=== PATIENT | male | born 1995 | race Asian ===

== ENCOUNTER 2021-12-01 23:48 | Emergency (ER) | payer SELFPAY ==
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
[2021-12-02 00:12] LABS: Urine Blood Negative (Negative); Urine Glucose Negative (Negative); Urine Protein Trace (Negative); Urine Specific Gravity >=1.030 (1.005-1.030); Urine pH 6.5 (5.0-7.0)
--- NOTE | 2021-12-02 00:18 | ER ---
Nurse's Notes [facility] Name: Darek Grimes Age: 25 yrs Sex: Male : 1995 Arrival Date: 12/01/2021 Time: 23:50 Bed 20 Private MD: Diagnosis: Nonspecific urethritis Presentation: 12/01 23:59 Chief complaint: Patient states: "It started off with just itching and burning when I tw5 pee. I took a nap and when I woke up there was discharge.". Coronavirus screen: Vaccine status: Patient reports being unvaccinated. Ebola Screen: Patient negative for fever greater than or equal to 101.5 degrees Fahrenheit, and additional compatible Ebola Virus Disease symptoms Patient denies exposure to infectious person. Patient denies travel to an Ebola-affected area in the 21 days before illness onset. Onset: The symptoms/episode began/occurred gradually. Anaphylaxis evaluation, no signs or symptoms of anaphylaxis were noted. Initial Sepsis Screen: Does the patient meet any 2 criteria? No. Patient's initial sepsis screen is negative. Does the patient have a suspected source of infection? No. Patient's initial sepsis screen is negative. Risk Assessment: Do you want to hurt yourself or someone else? Patient reports no desire to harm self or others. Onset of symptoms was December 02, 2021. 23:59 Method Of Arrival: Ambulatory tw5 23:59 Acuity: KARINA 4 tw5 Triage Assessment: 12/02 00:00 General: Appears in no apparent distress. Behavior is calm, cooperative, appropriate tw5 for age. Pain: Denies pain. Historical: - Allergies: 00:00 NKDA; tw5 - Home Meds: 00:00 None [Active]; tw5 - PMHx: 00:00 None; tw5 - PSHx: 00:00 None; tw5 - Immunization history:: Flu vaccine is not up to date. - Social history:: Smoking status: Patient denies any tobacco usage or history of. Screenin:00 Abuse screen: Denies threats or abuse. Nutritional screening: No deficits noted. ja4 Tuberculosis screening: No symptoms or risk factors identified. Fall Risk None identified. Assessment: 00:00 General: Appears in no apparent distress. Pain: Complains of pain in pelvis. ja4 Respiratory: No deficits noted. : Reports burning with urination, since 11/30/21 discharge, from penis that is white, yellow, Patient is sexually active. Vital Signs: 12/01 23:59 BP 128 / 80; Pulse 67; Resp 18; Temp 98.6; Pulse Ox 97% ; Weight 70.31 kg; Height 5 ft. tw5 11 in. (180.34 cm); Pain 0/10; 23:59 Body Mass Index 21.62 (70.31 kg, 180.34 cm) tw5 ED Course: 23:50 Patient arrived in ED. bp1 23:54 Elaine Tomlin FNP-C [facility] snw 23:54 Klever Wang MD is Attending Physician. snw 12/02 00:00 Triage completed. tw5 00:00 Arm band placed on Patient placed in an exam room. tw5 00:00 Patient has correct armband on for positive identification. Bed in low position. Call ja4 light in reach. 00:00 No provider procedures requiring assistance completed. ja4 00:20 Victoriano Goncalves RN is Primary Nurse. ja4 Administered Medications: 00:21 CANCELLED (Inappropriate at this time; + etohh): Flagyl (metroNIDAZOLE) 1 grams PO once snw 00:41 Drug: Rocephin (cefTRIAXone) 250 mg Route: IM; Site: left gluteus; ja4 00:41 Drug: Zithromax (azithromycin) 1 grams Route: PO; ja4 Medication: 00:00 VIS not applicable for this client. ja4 Outcome: 00:17 Discharge ordered by MD. snw 01:15 Discharged to home ja4 01:15 Condition: stable 01:15 Discharge instructions given to patient, Instructed on discharge instructions, follow up and referral plans. safe sex practices, Demonstrated understanding of instructions, follow-up care. 01:16 Patient left the ED. ja4 Signatures: Elaine Tomlin FNP-C PATENT PROSECUTION ATTORNEY-Csnw Twila Lozano bp1 Elba العلي tw5 Victoriano Goncalves, ASHLIE RN ja4
--- NOTE | 2021-12-02 00:19 | EDPHYS ---
Physician Documentation [facility] Name: Darek Grimes Age: 25 yrs Sex: Male : 1995 Arrival Date: 12/01/2021 Time: 23:50 Bed 20 Private MD: ED Physician Klever Wang HPI: 12/02 00:23 This 25 yrs old Male presents to ER via Ambulatory with complaints of Pain With snw Urination, Itching. 00:23 Onset: The symptoms/episode began/occurred acutely. Associated signs and symptoms: The snw patient has no apparent associated signs or symptoms. Modifying factors: The patient symptoms are alleviated by nothing, the patient symptoms are aggravated by unprotected intercourse. The patient has experienced similar episodes in the past, a few times. The patient has not recently seen a physician. encouraged to go to [facility] clinic. Historical: - Allergies: 00:00 NKDA; tw5 - Home Meds: 00:00 None [Active]; tw5 - PMHx: 00:00 None; tw - PSHx: 00:00 None; tw5 - Immunization history:: Flu vaccine is not up to date. - Social history:: Smoking status: Patient denies any tobacco usage or history of. ROS: 00:22 Constitutional: Negative for fever, chills, and weight loss, Eyes: Negative for injury, snw pain, redness, and discharge, ENT: Negative for injury, pain, and discharge, Neck: Negative for injury, pain, and swelling, Cardiovascular: Negative for chest pain, palpitations, and edema, Respiratory: Negative for shortness of breath, cough, wheezing, and pleuritic chest pain, Abdomen/GI: Negative for abdominal pain, nausea, vomiting, diarrhea, and constipation, Back: Negative for injury and pain, MS/Extremity: Negative for injury and deformity, Skin: Negative for injury, rash, and discoloration, Neuro: Negative for headache, weakness, numbness, tingling, and seizure, Psych: Negative for depression, anxiety, suicide ideation, homicidal ideation, and hallucinations. 00:22 : Positive for urinary symptoms, burning with urination, penile discharge. Exam: 00:24 Constitutional: This is a well developed, well nourished patient who is awake, alert, snw and in no acute distress. Head/Face: Normocephalic, atraumatic. Eyes: Pupils equal round and reactive to light, extra-ocular motions intact. Lids and lashes normal. Conjunctiva and sclera are non-icteric and not injected. Cornea within normal limits. Periorbital areas with no swelling, redness, or edema. ENT: Nares patent. No nasal discharge, no septal abnormalities noted. Tympanic membranes are normal and external auditory canals are clear. Oropharynx with no redness, swelling, or masses, exudates, or evidence of obstruction, uvula midline. Mucous membranes moist. Neck: Trachea midline, no thyromegaly or masses palpated, and no cervical lymphadenopathy. Supple, full range of motion without nuchal rigidity, or vertebral point tenderness. No Meningismus. Chest/axilla: Normal chest wall appearance and motion. Nontender with no deformity. No lesions are appreciated. Cardiovascular: Regular rate and rhythm with a normal S1 and S2. No gallops, murmurs, or rubs. Normal PMI, no JVD. No pulse deficits. Respiratory: Lungs have equal breath sounds bilaterally, clear to auscultation and percussion. No rales, rhonchi or wheezes noted. No increased work of breathing, no retractions or nasal flaring. Abdomen/GI: Soft, non-tender, with normal bowel sounds. No distension or tympany. No guarding or rebound. No evidence of tenderness throughout. Back: No spinal tenderness. No costovertebral tenderness. Full range of motion. Skin: Warm, dry with normal turgor. Normal color with no rashes, no lesions, and no evidence of cellulitis. MS/ Extremity: Pulses equal, no cyanosis. Neurovascular intact. Full, normal range of motion. Neuro: Awake and alert, GCS 15, oriented to person, place, time, and situation. Cranial nerves II-XII grossly intact. Motor strength 5/5 in all extremities. Sensory grossly intact. Cerebellar exam normal. Normal gait. Vital Signs: 12/01 23:59 BP 128 / 80; Pulse 67; Resp 18; Temp 98.6; Pulse Ox 97% ; Weight 70.31 kg; Height 5 ft. tw5 11 in. (180.34 cm); Pain 0/10; 23:59 Body Mass Index 21.62 (70.31 kg, 180.34 cm) tw5 MDM: 12/02 00:07 Patient medically screened. snw 00:21 Data reviewed: vital signs, nurses notes, lab test result(s). Data interpreted: Pulse snw oximetry: on room air is 97 %. Interpretation: normal. Counseling: I had a detailed discussion with the patient and/or guardian regarding: the historical points, exam findings, and any diagnostic results supporting the discharge/admit diagnosis, lab results, the need for outpatient follow up, to return to the emergency department if symptoms worsen or persist or if there are any questions or concerns that arise at home. Special discussion: Based on the history and exam findings, there is no indication for further emergent testing or inpatient evaluation. [facility]. 12/01 23:54 Order name: Urine Culture snw 12/01 23:54 Order name: Urine Microscopic Only; Complete Time: 00:45 snw 12/02 00:13 Order name: Urine Dipstick-Ancillary; Complete Time: 00:14 EDMS 12/01 23:54 Order name: Urine Dipstick-Ancillary (obtain specimen) snw 12/01 23:54 Order name: Urine Test (obtain specimen) snw Administered Medications: 00:21 CANCELLED (Inappropriate at this time; + etohh): Flagyl (metroNIDAZOLE) 1 grams PO once snw 00:41 Drug: Rocephin (cefTRIAXone) 250 mg Route: IM; Site: left gluteus; ja4 00:41 Drug: Zithromax (azithromycin) 1 grams Route: PO; ja4 Disposition Summary: 12/02/21 00:17 Discharge Ordered Location: Home snw Condition: Stable snw Diagnosis - Nonspecific urethritis snw Followup: snw - With: Emergency Department - When: As needed - Reason: Worsening of condition Followup: snw - With: Private Physician - When: 2 - 3 days - Reason: Recheck today's complaints, Continuance of care, Re-evaluation by your physician Discharge Instructions: - Discharge Summary Sheet snw - Urethritis, Adult snw - Preventing Sexually Transmitted Infections, Adult snw Forms: - Medication Reconciliation Form snw - Thank You Letter snw - Antibiotic Education snw - Prescription Opioid Use snw Signatures: Dispatcher [employer] EDElaine Muniz FNP-C FNP-Elba Mcclelland tw5 Victoriano Goncalves RN RN ja4 Corrections: (The following items were deleted from the chart) 00:21 00:15 Flagyl (metroNIDAZOLE) 1 grams PO once ordered. snw snw
[2021-12-02] MEDS ORDERED: CEFTRIAXONE 250 MG/VIAL ONE (00:38)
[2021-12-02] MEDS ORDERED: AZITHROMYCIN 250 MG TAB ONE (00:38)
[2021-12-02 00:42] LABS: Urine Bacteria <20 /HPF (<20); Urine Mucus 2+ /HPF (None Seen); Urine RBC <5 /HPF (None Seen)
[2021-12-02 05:14] VITALS: BP 128/80; TEMP 98.6; O2SAT 97
== END 2021-12-02 01:16 | disposition home or self-care (01) ==
LOC: ER 23:48
DX: N34.1 Nonspecific urethritis (principal)
CPT/HCPCS: 81003; 81015; 87086; 87088; 96372; 99283; J0696

== ENCOUNTER 2022-11-23 12:03 | Emergency (ER) | payer BC ==
--- OUTSIDE RECORDS SUMMARY | 2022-11-23 12:06 | XMS REPORT | Continuity of Care Document ---
:1995 Author Organization [facility] t Address [address] [place] [address] Care Team Providers Name Role Phone VIRIDIANA RIZO Attending Clinician Unavailable VIC OLIVIER Attending Clinician Unavailable TAMICA Attending Clinician Unavailable DR VIRIDIANA RIZO Attending Clinician Unavailable JANNA MARINELLI PA Attending Clinician Unavailable VIRIDIANA RIZO M.D. Attending Clinician Unavailable NARAYAN AGARWAL M.D. Attending Clinician Unavailable Vic Olivier M.D. Attending Clinician Unavailable ENEDELIA MOON P.A. Attending Clinician Unavailable DOMENICA REY M.D. Attending Clinician Unavailable PARUL JACOBSEN M.D. Attending Clinician Unavailable TAMICA Admitting Clinician Unavailable DR VIRIDIANA RIZO Admitting Clinician Unavailable Payers Payer Name Policy Type Policy Number Effective Date Expiration Date S gaurav [id number] PPO [id number] 2018 00:00:00 2020 00: 00:00 Problems Condition [...] (finding ans ) No Known DA Active [facility] Social History Smoking Status Start Date Stop Date Source Never smoked tobacco (finding) [facility] Medications Ordered Filled Start Stop Current Ordering Indication Dosage Frequency Signature Comments Components Source Medication Medication Date Date Medication? Clinician (SIG) Name Name Methocarbam Methocarbam Yes JANNA 1 TAKE 1 UT ol 500 MG ol 500 MG 6-01 MARINELLI PA TABLET Physici Oral Tablet Oral Tablet [...] Procedure Date / Time Performed Performing Clinician Sourc e EXTIRPAT MATTER RT 2021-01-24 00:00:00 Jaymie hartman KNEE JOINT OPN Center MR Knee wo contrast 2020-05-21 00:00:[facility] [id number] [U] XRAY FEMUR 2 VWS 2020-05-14 00:00:00 [facility] RIGHT [id number] [U] XRAY FEMUR 2 VWS 2019-12-15 00:00:00 [facility] RIGHT [id number] [U] XRAY FEMUR 2 VWS 2019-09-16 00:00:00 [facility] RIGHT [id number] [U] XRAY FEMUR 2 VWS 2019-08-25 00:00:00 [facility] RIGHT [id number] [QLH] SED RATE BY 2019-06-02 00:00:00 [facility] MODIFIED WESTERGREN [QLH] C-REACTIVE 2019-06-02 00:00:00 [facility] PROTEIN [L] Vitamin D, 2019-06-02 00:00:00 [facility] 25-Hydroxy, Total - Esoterix [QLH] CBC (INCLUDES 2019-06-02 00:00:00 [facility] DIFF/PLT) [QLH] TSH, 3RD 2019-06-02 00:00:00 [facility] GENERATION [U] XRAY ANKLE MIN 3 2019-05-07 00:00:00 [facility] VWS RIGHT [id number] [U] XRAY FEMUR 2 VWS 2019-05-07 00:00:00 [facility] RIGHT [id number] [U] XRAY KNEE 1 OR 2 2019-05-07 00:00:00 [facility] VWS RIGHT [id number] [U] XRAY ANKLE MIN 3 2019-04-25 00:00:00 [facility] VWS RIGHT [id number] [U] XRAY FEMUR 2 VWS 2019-04-25 00:00:00 [facility] RIGHT [id number] [U] XRAY KNEE 1 OR 2 2019-04-25 00:00:00 [facility] VWS RIGHT [id number] [U] XRAY KNEE 3 VWS 2019-04-02 00:00:00 [facility] RIGHT [id number] [U] XRAY FEMUR 2 VWS 2019-03-14 00:00:00 [facility] RIGHT [id number] [U] XRAY KNEE 1 OR 2 2019-03-14 00:00:00 [facility] VWS RIGHT [id number] [U] XRAY ANKLE MIN 3 2019-03-14 00:00:00 [facility] VWS RIGHT [id number] [U] XRAY ANKLE MIN 3 2019-02-07 00:00:00 [facility] VWS RIGHT [id number] [U] XRAY FEMUR 2 VWS 2019-02-07 00:00:00 [facility] RIGHT [id number] [U] XRAY KNEE 1 OR 2 2019-02-07 00:00:00 [facility] VWS RIGHT [id number] [U] XRAY ANKLE MIN 3 2019-01-30 00:00:00 [facility] VWS RIGHT [id number] [U] XRAY FEMUR 2 VWS 2019-01-30 00:00:00 [facility] RIGHT [id number] [U] XRAY KNEE 1 OR 2 2019-01-30 00:00:00 [facility] VWS RIGHT [id number] Encounters Start End Encounter Admission Attending Care Care Encounter Source Date/Time Date/Time Type Type Clinicians Facility Department ID 2022-01-25 Outpatient [facility] [id number] [place] 16:37:10 [id number] [facility] 2021-10-20 Outpatient DARRIUS VIRIDIANA [facility] [id number] [place] 08:35:14 [id number] [facility] 2021-08-23 Outpatient DAR[place]US [place]IANA [place] [id number] [place] 13:19:31 [id number] [facility] 2021-08-22 Outpatient DARRIUS, VIRIDIANA [place] UT [id number] UT 07:10:13 [id number] [facility] 2021-08-20 Outpatient DARRIUS, VIRIDIANA [place] UT [id number] UT 22:19:54 [id number] [facility] 2021-08-15 Outpatient DARRIUS, VIRIDIANA [place] UT [id number] UT 14:57:23 [id number] [facility] 2021-07-20 Outpatient [place] [id number] [place] 16:51:53 [id number] [facility] 2021-05-21 Outpatient DARRIUS, VIRIDIANA UT UT [id number] UT 01:02:53 [facility] 2021-05-17 Outpatient DARRIUS, VIRIDIANA UT UT [id number] UT 15:26:02 [facility] 2021-04-19 Outpatient DARRIUS, VIRIDIANA UT UT [id number] UT 15:18:08 [facility] 2021-03-22 Outpatient DARRIUS, VIRIDIANA UT UT [id number] UT 15:57:33 [facility] 2021-03-10 Outpatient DARRIUS, V[place]IDIANA [place] UT [id number] UT 16:09:35 [facility] 2021-03-10 Outpatient DARRIUS, [place]IDIA[place] UT [id number] UT 14:21:02 [facility] 2021-03-03 Outpatient DARRIUS, V[place]IDIANA UT UT [id number] UT 14:19:51 [facility] 2021-02-28 Outpatient DARRIUS, VIRIDIANA U[place] UT [id number] UT 16:10:08 [facility] 2021-02-18 Outpatient DARRIUS, VIRIDIANA UT UT [id number] UT 13:20:04 [facility] 2021-02-10 Outpatient DARRIUS, VIRIDIANA UT UT [id number] UT 16:49:28 [facility] 2021-02-03 Outpatient DARRIUS, VIRIDIANA UT UT [id number] UT 16:02:45 [facility] 2021-01-19 Outpatient DARRIUS, [place]IDIANA UTH UT [id number] UT 11:30:20 [facility] 2021-01-19 Outpatient UTH UT [id number] UT 11:27:26 Health 2021-01-19 Outpatient VIRIDIANA RIZO [facility] [id number] [place] 11:26:51 Health 2020-12-24 Outpatient VIRIDIANA RIZO [facility] [id number] [place] 10:50:57 Health 2019-09-24 Outpatient ACHOR, [facility] [id number] [facility] 14:05:42 VIC 2021-11-01 2021-11-01 Outpatient AMBREEN_FAR [facility] [id number] [place] 11:29:00 11:29:00 [id number] 2021-01-24 2021-01-24 Outpatient C VIRIDIANA RIZO [facility] TRAVISASC 1 [id number] [facility] 05:43:00 11:50:00 [facility] 2020-05-24 2020-05-24 Harjinder MARINELLI, [facility] [id number] [place] 13:00:00 13:00:00 t; JANNA MARINELLI PA Physici DENISE, PA [facility] 2020-05-21 2020-05-21 Appointeve [facility] Orthopedics [id number] [place] 10:30:00 10:30:00 t; VIRIDIANA RIZO M.D. [facility] Fransisco KEMP M.D. [facility] 2020-04-26 2020-04-26 Harjinder MARINELLI, [facility] [id number] [place] 14:15:00 14:15:00 t; JANNA MARINELLI PA Physici DENISE, PA [facility] 2020-03-01 2020-03-01 Harjinder MARINELLI [facility] Orthopedics [id number] [place] 11:00:00 11:00:00 t; JANNA MARINELLI PA [facility] ANTONY Lira [facility] 2020-01-19 2020-01-19 Appointeve MARINELLI [facility] [id number] [place] 10:45:00 10:45:00 t; JANNA MARINELLI PA Physici DENISE, PA [facility] 2020-01-01 2020-01-01 Harjinder AGARWAL, [facility] [id number] [place] 10:00:00 10:00:00 t; Raghav BUSCH M.D. ans Xavi BUSCH 2020-01-01 2020-01-01 [facility] [id number] [place] 07:00:00 07:00:00 t; Vic Olivier Phy sici Timothy, M.D. ans M.D. 2019-12-15 2019-12-15 Appointmen ISIS [facility] Orthopedics [id number] [place] 11:00:00 11:00:00 t; JANNA MARINELLI PA Trauma Physici JANNA, PA [facility] 2019-09-22 2019-09-22 [facility]oint[facility] [id number] [place] 08:00:00 08:00:00 t; JANNA MARINELLI PA Trauma Physici JANNA, PA [facility] 2019-08-25 2019-08-25 Appointmen [facility] Orth[facility] [id number] [place] 09:45:00 09:45:00 t; JANNA MARINELLI PA Trauma Physici JANNA, PA [facility] 2019-08-13 2019-08-13 [facility] [id number] [place] 12:45:00 12:45:00 t; Mihai MCDANIELS, PMaria Elena ans ENEDELIA P.Lauryn 2019-06-19 2019-06-19 [facility] [id number] [place] 10:00:00 10:00:00 t; DOMENICA REY Ph ysici WILLIAM, M.D. ans M.D. 2019-06-02 2019-06-02 Appointmen ISIS [facility] Orthopedics [id number] [place] 11:30:00 11:30:00 t; JANNA MARINELLI PA Trauma Physici JANNA, PA [facility] 2019-05-27 2019-05-27 [facility] [id number] [place] 13:30:00 13:30:00 t; Raghav BUSCH M.D. ans GRIGORIOS, M.D. 2019-05-22 2019-05-22 [facility]oint[facility] [id number] [place] 10:45:00 10:45:00 t; DOMENICA REY Ph ysici WILLIAM, M.D. ans M.D. 2019-05-21 2019-05-21 Harjinder JACOBSEN [facility] [id number] [place] 11:30:00 11:30:00 t; PARUL JACOBSEN Physi Xavi Brown MMarlys 2019-05-21 2019-05-21 Harjinder JACOBSEN [facility] Orthopedics [id number] [place] 08:00:00 08:00:00 t; PARUL JACOBSEN Trauma Physi Xavi Brown - ans Xavi [facility] 2019-05-20 2019-05-20 Harjinder AGARWAL [facility] [id number] [place] 12:30:00 12:30:00 t; Raghav BUSCH M.D. ans GRIGORIOS, M.D. 2019-05-07 2019-05-07 Harjinder JACOBSEN [facility] Orthopedics [id number] [place] 13:30:00 13:30:00 t; PARUL JACOBSEN Trauma Physi Xavi Brown - ans Xavi [facility] 2019-04-22 2019-04-22 [facility]ointeve [facility] [id number] [place] 09:30:00 09:30:00 t; DOMENICA REY, Ph Xavi Montes MMarlys 2019-04-03 2019-04-03 Harjinder REY [facility] Orthopedics [id number] [place] 11:00:00 11:00:00 t; DOMENICA REY, Trauma Ph Xavi Montes - luther [facility] 2019-03-26 2019-03-26 Harjinder JACOBSEN [facility] Orthopedics [id number] [place] 13:30:00 13:30:00 t; PARUL JACOBSEN Trauma Physi janneth TERAN M.D. Clinic - ans MMarlys [facility] 2019-03-17 2019-03-17 Harjinder MOON [facility] Orthopedics [id number] [place] 10:00:00 10:00:00 t; ENEDELIA Trauma Physi ci Gopi [facility] - ans [facility] 2019-02-19 2019-02-19 Harjinder JACOBSEN [facility] Orthopedics [id number] [place] 13:15:00 13:15:00 t; PARUL JACOBSEN, Trauma Physi janneth TERAN M.D. [facility] luther [facility] 2019-02-18 2019-02-18 Harjinder AGARWAL [facility] Plastic [id number] [place] 12:30:00 12:30:00 t; Libby BUSCH - Ricci AGARWAL M.D. [facility] Elena BUSCH M.D. [place] 2019-02-05 2019-02-05 Harjinder MOON [facility] Orthopedics [id number] [place] 12:30:00 12:30:00 t; ENEDELIA, Trauma Physi ci Gopi MOON [facility] 2019-01-21 2019-01-21 Harjinder AGARWAL [facility] Plastic [id number] [place] 11:30:00 11:30:00 t; Libby BUSCH - P calvin AGARWAL M.D. [facility] Elena BUSCH M.D. [place] 2019-01-15 2019-01-15 Harjinder JACOBSEN, [facility] [id number] UT 12:30:00 12:30:00 t; PARUL JACOBSEN Physi Xavi Brown M.D. 2019-01-07 2019-01-07 Harjinder AGARWAL, [facility] [id number] [place] 08:00:00 08:00:00 t; Raghav BUSCH M.D. ans GRIGORIOS, M.D. 2018-12-31 2018-12-31 Appointeve JACOBSEN, [facility] [id number] [place] 09:00:00 09:00:00 t; PARUL JACOBSEN Physi Xavi Brown MMarlys 2018-12-20 2018-12-20 Appointeve JACOBSEN, [facility] [id number] [place] 07:00:00 07:00:00 t; PARUL JACOBSEN Physi Xavi Brown MMarlys 2018-12-17 2018-12-17 Appointeve JACOBSEN, [facility] [id number] UT 11:00:00 11:00:00 t; PARUL JACOBSEN Physi Xavi BrownD. 2018-12-16 2018-12-16 Appointmen ANN-MARIE [facility] UTP [id number] [place] 10:00:00 10:00:00 t; PARUL JACOBSEN Physi ci ANDREW, M.D. ans M.D. 2018-12-14 2018-12-14 Appointeve JACOBSEN [facility] UTP [id number] UT 11:00:00 11:00:00 t; PARUL JACOBSEN Physi Xavi Brown M.D. 2018-12-14 2018-12-14 [facility] E [facility] CHINYERE [address] [facility] 13:42:00 08:04:00 Results Test Description Test Time Test Comments Results Result Sour e Comments [U] XRAY FEMUR 2 2020-05-24 [facility] V[facility] RIGHT [id number] 12:59:00 acquired, not reported on this accession number. [U] XRAY KNEE 1 OR 2020-03-01 [facility] 2 VWS LEFT [id number] 11:28:00 acquired, not reported on this accession number. [U] XRAY FEMUR 2 2020-03-01 [facility] VWS RIGHT [id number] 11:18:00 acquired, not reported on this accession number. [U] XRAY FEMUR 2 2019-12-15 [facility] VWS RIGHT [id number] 12:07:00 acquired, not reported on this accession number. [U] XRAY FEMUR 2 2019-09-22 [facility] VWS RIGHT [id number] 09:28:00 acquired, not reported on this accession number. [U] XRAY FEMUR 2 2019-05-21 [facility] VWS RIGHT [id number] 11:44:00 acquired, not reported on this accession number. [U] XRAY KNEE 1 OR 2019-05-21 [facility] 2 VWS RIGHT [id number] 11:44:00 acquired, not reported on this accession number. [U] XRAY ANKLE MIN 2019-05-21 [facility] 3 VWS RIGHT [id number] 11:44:00 acquired, not reported on this accession number. [U] XRAY ANKLE MIN 2019-03-26 [facility] 3 VWS RIGHT [id number] 12:42:00 acquired, not reported on this accession number. [U] XRAY FEMUR 2 2019-03-26 [facility] VWS RIGHT [id number] 12:42:00 acquired, not reported on this accession number. [U] XRAY KNEE 1 OR 2019-03-26 [facility] 2 VWS RIGHT [id number] 12:42:00 acquired, not reported on this accession number. [U] XRAY ANKLE MIN 2019-03-17 [facility] 3 VWS RIGHT [id number] 10:16:00 acquired, not reported on this accession number. [U] XRAY FEMUR 2 2019-03-17 [facility] VWS RIGHT [id number] 10:16:00 acquired, not reported on this accession number. [U] XRAY KNEE 1 OR 2019-03-17 [facility] 2 VWS RIGHT [id number] 10:16:00 acquired, not reported on this accession number. [U] XRAY KNEE 1 OR 2019-02-19 [facility] 2 VWS RIGHT [id number] 13:10:00 acquired, not reported on this accession number. [U] XRAY FEMUR 2 2019-02-19 [facility] VWS RIGHT [id number] 13:10:00 acquired, not reported on this accession number. [U] XRAY ANKLE MIN 2019-02-19 [facility] 3 VWS RIGHT [id number] 13:10:00 acquired, not reported on this accession number. [U] XRAY ANKLE MIN 2019-02-05 [facility] 3 VWS RIGHT [id number] 12:39:00 acquired, not reported on this accession number. [U] XRAY FEMUR 2 2019-02-05 [facility] VWS RIGHT [id number] 12:39:00 acquired, not reported on this accession number. [U] XRAY KNEE 1 OR 2019-02-05 [facility] 2 VWS RIGHT [id number] 12:39:00 acquired, not reported on this accession number. [U] XRAY ANKLE MIN 2019-01-15 [facility] 3 VWS RIGHT [id number] 11:58:00 acquired, not reported on this accession number. [U] XRAY FEMUR 2 2019-01-15 [facility] VWS RIGHT [id number] 11:58:00 acquired, not reported on this accession number. [U] XRAY KNEE 1 OR 2019-01-15 [facility] 2 VWS RIGHT [id number] 11:58:00 acquired, not reported on this accession number.
--- NOTE | 2022-11-23 12:22 | EDPHYS ---
Physician Documentation [facility] Name: Darek Grimes Age: 26 yrs Sex: Male : 1995 Arrival Date: 11/23/2022 Time: 12:03 Bed 20 Private MD: ED Physician Wilmer Mansfield HPI: 11/23 12:15 This 26 yrs old Male presents to ER via Ambulatory with complaints of STD kb Exposure. 12:15 The patient has not experienced similar symptoms in the past. The patient has not kb recently seen a physician. Pt reports his girlfriend tested positive for mycoplasma genitalium and her dr recommended he get treated. Pt denies any symptoms. . Historical: - Allergies: 12:17 Apple; ll1 - PMHx: 12:17 None; ll1 - PSHx: 12:17 leg/wrist SX; ll1 - Immunization history:: Adult Immunizations up to date. - Social history:: Smoking status: Patient reports the use of cigarette tobacco products, denies chronic smoking, but will smoke occasionally, Reported history of juuling and/or vaping. ROS: 12:15 Constitutional: Negative for fever, chills, and weight loss. kb 12:15 All other systems are negative. Exam: 12:15 Constitutional: This is a well developed, well nourished patient who is awake, alert, kb and in no acute distress. Head/Face: Normocephalic, atraumatic. ENT: Moist Mucous membranes Cardiovascular: Regular rate and rhythm with a normal S1 and S2. No gallops, murmurs, or rubs. No pulse deficits. Respiratory: Respirations even and unlabored. No increased work of breathing. Talking in full sentences Abdomen/GI: Soft, non-tender. No distention Skin: Warm, dry with normal turgor. Normal color. MS/ Extremity: Pulses equal, no cyanosis. Neurovascular intact. Full, normal range of motion. Neuro: Awake and alert, GCS 15, oriented to person, place, time, and situation. Moves all extremities. Normal gait. Vital Signs: 12:15 BP 133 / 85; Pulse 65; Resp 15; Temp 98.2; Pulse Ox 97% ; Weight 74.84 kg; Height 5 ft. ll1 10 in. ; Pain 0/10; 12:29 BP 125 / 83; Pulse 70; Resp 16; ll1 12:15 Body Mass Index 23.67 (74.84 kg, 177.8 cm) ll1 12:15 Pain Scale: Adult ll1 MDM: 12:09 Patient medically screened. kb 12:21 Differential diagnosis: sti, uti. Data reviewed: vital signs, nurses notes. Counseling: ayaz I had a detailed discussion with the patient and/or guardian regarding: the historical points, exam findings, and any diagnostic results supporting the discharge/admit diagnosis, the need for outpatient follow up, a urologist, to return to the emergency department if symptoms worsen or persist or if there are any questions or concerns that arise at home. Administered Medications: No medications were administered Disposition: 14:38 Co-signature as Attending Physician, Wilmer Mansfield MD I reviewed the patient's care rn provided by the Advanced Practice Provider and agree with the diagnosis and treatment plan. Disposition Summary: 11/23/22 12:22 Discharge Ordered Location: Home kb Condition: Stable kb Diagnosis - Unspecified sexually transmitted disease kb Followup: kb - With: Emergency Department - When: As needed - Reason: Worsening of condition Followup: kb - With: Private Physician - When: 2 - 3 days - Reason: Recheck today's complaints, Continuance of care, Re-evaluation by your physician Discharge Instructions: - Discharge Summary Sheet kb - Preventing Sexually Transmitted Infections, Adult kb Forms: - Medication Reconciliation Form kb - Thank You Letter kb - Antibiotic Education kb - Prescription Opioid Use kb - Patient Portal Instructions kb Prescriptions: - Doxycycline Hyclate 100 mg Oral Tablet - take 1 tablet by ORAL route every 12 hours; 20 tablet; Refills: 0, Product kb Selection Permitted - Zithromax 500 mg Oral Tablet - take 1 tablet by ORAL route once daily for 5 days; 5 tablet; Refills: 0, kb Product Selection Permitted Signatures: Serena Gilmore, GARBAGE TRUCK DISPATCHER-C GARBAGE TRUCK DISPATCHER-Wilmer Kidd MD MD rn Lewis, Lynsay, RN RN ll1 Corrections: (The following items were deleted from the chart) 12:17 12:09 Allergies: NKDA; ll1 ll1
--- NOTE | 2022-11-23 12:22 | ER ---
Nurse's Notes [facility] Name: Darek Grimes Age: 26 yrs Sex: Male : 1995 Arrival Date: 11/23/2022 Time: 12:03 Bed 20 Private MD: Diagnosis: Unspecified sexually transmitted disease Presentation: 11/23 12:15 Chief complaint: Patient states: Exposed to mycoplasme genitallium (possible STD). No ll1 symptoms or pain. Coronavirus screen: Vaccine status: Patient reports receiving the 2nd dose of the covid vaccine. Client denies travel out of the [place] in the last 14 days. At this time, the client does not indicate any symptoms associated with coronavirus-19. Ebola Screen: Patient denies travel to an Ebola-affected area in the 21 days before illness onset. Initial Sepsis Screen: Does the patient meet any 2 criteria? No. Patient's initial sepsis screen is negative. Does the patient have a suspected source of infection? No. Patient's initial sepsis screen is negative. Risk Assessment: Do you want to hurt yourself or someone else? Patient reports no desire to harm self or others. Onset of symptoms is unknown. 12:15 Method Of Arrival: Ambulatory ll1 12:15 Acuity: KARINA 5 ll1 Triage Assessment: 12:17 General: Appears in no apparent distress. Behavior is calm, cooperative, appropriate ll1 for age. General: Reports being exposed to STD. Pain: Denies pain. Neuro: No deficits noted. Cardiovascular: No deficits noted. Historical: - Allergies: 12:17 Apple; ll1 - PMHx: 12:17 None; ll1 - PSHx: 12:17 leg/wrist SX; ll1 - Immunization history:: Adult Immunizations up to date. - Social history:: Smoking status: Patient reports the use of cigarette tobacco products, denies chronic smoking, but will smoke occasionally, Reported history of juuling and/or vaping. Screenin:29 [facility] ED Fall Risk Assessment (Adult) Score/Fall Risk Level 0 - 2 = Low Risk ll1 Oriented to surroundings, Maintained a safe environment, Educated pt \T\ family on fall prevention, incl call for assistance when getting out of bed, Hourly rounding (assess needs \T\ fall precautionary measures) done. Abuse screen: Denies threats or abuse. Nutritional screening: No deficits noted. Tuberculosis screening: No symptoms or risk factors identified. Assessment: 12:28 Reassessment: No changes from previously documented assessment. Patient and/or family ll1 updated on plan of care and expected duration. Pain level reassessed. Patient is alert, oriented x 3, equal unlabored respirations, skin warm/dry/pink. Vital Signs: 12:15 BP 133 / 85; Pulse 65; Resp 15; Temp 98.2; Pulse Ox 97% ; Weight 74.84 kg; Height 5 ft. ll1 10 in. ; Pain 0/10; 12:29 BP 125 / 83; Pulse 70; Resp 16; ll1 12:15 Body Mass Index 23.67 (74.84 kg, 177.8 cm) ll1 12:15 Pain Scale: Adult ll1 ED Course: 12:07 Patient arrived in ED. mr 12:09 Se[facility] Gil[facility]-C [facility] kb 12:09 Wilmer Mansfield MD is Attending Physician. kb 12:09 Arm band placed on Patient placed in an exam room, on a stretcher. ll1 12:15 Janee Brush, ASHLIE is Primary Nurse. ll1 12:17 Triage completed. ll1 12:29 Patient has correct armband on for positive identification. Call light in reach. Side ll1 rails up X 1. Provided Education on: n/a. 12:29 No provider procedures requiring assistance completed. Patient did not have IV access ll1 during this emergency room visit. Administered Medications: No medications were administered Medication: 12:38 VIS not applicable for this client. ll1 Outcome: 12:22 Discharge ordered by . kb 12:29 Patient left the ED. ll1 12:29 Discharged to home ambulatory. ll1 12:29 Condition: stable 12:29 Discharge instructions given to patient, Instructed on discharge instructions, follow up and referral plans. medication usage, Demonstrated understanding of instructions, follow-up care, medications, Prescriptions given X 2. Signatures: Serena Gilmore FNP-C FNP-Ckb RiveraBernie mr Janee Brush, RN RN ll1 Corrections: (The following items were deleted from the chart) 12:17 12:09 Allergies: NKDA; ll1 ll1
[2022-11-23 12:33] VITALS: BP 133/85; TEMP 98.2; O2SAT 97
== END 2022-11-23 12:29 | disposition home or self-care (01) ==
LOC: ER 12:03
DX: A64 Unspecified sexually transmitted disease (principal); F17.210 Nicotine dependence, cigarettes, uncomplicated; Z91.018 Allergy to other foods
CPT/HCPCS: 99283

== ENCOUNTER 2022-12-09 13:23 | Emergency (ER) | payer BC ==
--- OUTSIDE RECORDS SUMMARY | 2022-12-09 13:35 | XMS REPORT | Continuity of Care Document ---
:1995 Author Organization [facility] t Address [address] [place] [address] Care Team Providers Name Role Phone VIRIDIANA RIZO Attending Clinician Unavailable VIC OLIVIER Attending Clinician Unavailable TAMICA Attending Clinician Unavailable DR VIRIDIANA RIZO Attending Clinician Unavailable JANNA MARINELLI PA Attending Clinician Unavailable VIRIDIANA RIZO M.D. Attending Clinician Unavailable NARAYAN AGARWAL M.D. Attending Clinician Unavailable Vic Olivier M.D. Attending Clinician Unavailable ENEDELIA MOON PMaria Elena Attending Clinician Unavailable DOMENICA REY M.D. Attending Clinician Unavailable PARUL JACOBSEN M.D. Attending Clinician Unavailable TAMICA Admitting Clinician Unavailable DR VIRIDIANA RIZO Admitting Clinician Unavailable Payers Payer Name Policy Type Policy Number Effective Date Expiration Date Jorge nolasco [id number] PPO [id number] 2018 00:00:00 2020 00: 00:00 Problems Condition [...] (finding ans ) No Known DA Active [facility] Social History Smoking Status Start Date Stop [...] wo contrast 2020-05-21 00:00:[facility] [id number] [U] XRAY FEMUR 2 VWS 2020-05-14 00:00:00 [facility] RIGHT [id number] [U] XRAY FEMUR 2 VWS 2019-12-15 00:00:00 [facility] [id number] [U] XRAY FEMUR 2 VWS 2019-09-16 00:00:00 [facility] [id number] [U] XRAY FEMUR 2 VWS 2019-08-25 00:00:00 [facility] [id number] [QLH] SED RATE BY 2019-06-02 00:00:00 [facility] MODIFIED WESTERGREN [QLH] C-REACTIVE 2019-06-02 00:00:00 [facility] PROTEIN [L] Vitamin D, 2019-06-02 00:00:00 [facility] 25-Hydroxy, Total - Esoterix [QLH] CBC (INCLUDES 2019-06-02 00:00:00 [facility] DIFF/PLT) [QLH] TSH, 3RD 2019-06-02 00:00:00 [facility] GENERATION [U] XRAY ANKLE MIN 3 2019-05-07 00:00:00 [facility] VWS RIGHT [id number] [U] XRAY FEMUR 2 VWS 2019-05-07 00:00:00 [facility] RIGHT [id number] [U] XRAY KNEE 1 OR 2 2019-05-07 00:00:00 [facility] VWS RIGHT [id number] [U] XRAY ANKLE MIN 3 2019-04-25 00:00:00 [facility] V[facility] RIGHT [id number] [U] XRAY FEMUR 2 VWS 2019-04-25 00:00:00 [facility] RIGHT [id number] [U] XRAY KNEE 1 OR 2 2019-04-25 00:00:00 [facility] V[facility] RIGHT [id number] [U] XRAY KNEE 3 VWS 2019-04-02 00:00:00 [facility] [id number] [U] XRAY FEMUR 2 VWS 2019-03-14 00:00:00 [facility] RIGHT [id number] [U] XRAY KNEE 1 OR 2 2019-03-14 00:00:00 [facility] VWS RIGHT [id number] [U] XRAY ANKLE MIN 3 2019-03-14 00:00:00 [facility] VWS RIGHT [id number] [U] XRAY ANKLE MIN 3 2019-02-07 00:00:00 [facility] VWS RIGHT [id number] [U] XRAY FEMUR 2 VWS 2019-02-07 00:00:00 [facility] [id number] [U] XRAY KNEE 1 OR 2 2019-02-07 00:00:00 [facility] VWS RIGHT [id number] [U] XRAY ANKLE MIN 3 2019-01-30 00:00:00 [facility] V[facility] RIGHT [id number] [U] XRAY FEMUR 2 VWS 2019-01-30 00:00:00 [facility] [id number] [U] XRAY KNEE 1 OR 2 2019-01-30 00:00:00 [facility] VWS RIGHT [id number] Encounters Start End Encounter Admission Attending Care Care Encounter Source Date/Time Date/Time Type Type Clinicians Facility Department ID 2022-01-25 Outpatient [facility] [id number] [place] 16:37:10 [id number] [facility] 2021-10-20 Outpatient DARRIUS VIRIDIANA [facility] [id number] [place] 08:35:14 [id number] [facility] 2021-08-23 Outpatient DARRIUS VIRIDIANA [facility] [place] [id number] [place] 13:19:31 [id number] [facility] 2021-08-22 Outpatient DARRIUS, VIRIDIANA [place] UT [id number] [place] 07:10:13 [id number] [facility] 2021-08-20 Outpatient DARRIUS, [place]IRIDIANA [place] UT [id number] UT 22:19:54 [id number] [facility] 2021-08-15 Outpatient DARRIUS, [place]IRIDIANA [place] UT [id number] UT 14:57:23 [id number] [facility] 2021-07-20 Outpatient [place] [id number] UT 16:51:53 [id number] [facility] 2021-05-21 Outpatient DARRIUS, [place] [id number] UT 01:02:53 [facility] 2021-05-17 Outpatient DARRIUS, [place]IDIANA [place] UT [id number] UT 15:26:02 [facility] 2021-04-19 Outpatient DARRIUS, VIRIDIANA [place] UT [id number] UT 15:18:08 [facility] 2021-03-22 Outpatient DARRIUS, VIRIDIANA UT UT [id number] UT 15:57:33 [facility] 2021-03-10 Outpatient DARRIUS, V[place]IDIANA UT UT [id number] UT 16:09:35 [facility] 2021-03-10 Outpatient DARRIUS, VIRIDIANA UT UT [id number] UT 14:21:02 [facility] 2021-03-03 Outpatient DARRIUS, VIRIDIANA UT UT [id number] UT 14:19:51 [facility] 2021-02-28 Outpatient DARRIUS, [place] [id number] UT 16:10:08 [facility] 2021-02-18 Outpatient DARRIUS, VIRIDIANA UT UT [id number] UT 13:20:04 [facility] 2021-02-10 Outpatient DARRIUS, VIRIDIANA UT UT [id number] UT 16:49:28 [facility] 2021-02-03 Outpatient DARRIUS, [place] UT [id number] UT 16:02:45 [facility] 2021-01-19 Outpatient DARRIUS, [place] UT [id number] UT 11:30:20 [facility] 2021-01-19 Outpatient [place] [id number] [place] 11:27:26 Health 2021-01-19 Outpatient VIRIDIANA RIZO [facility] [id number] [place] 11:26:51 Health 2020-12-24 Outpatient VIRIDIANA RIZO [facility] [id number] [place] 10:50:57 Health 2019-09-24 [facility] [id number] [facility] 14:05:42 VIC 2021-11-01 2021-11-01 Outpatient AMBREEN_FAR MEHOP [facility] [id number] 11:29:00 11:29:00 [id number] 2021-01-24 2021-01-24 Outpatient C VIRIDIANA RIZO [facility] [id number] [facility] 05:43:00 11:50:[facility] 2020-05-24 2020-05-24 Harjinder MARINELLI, [facility] [id number] [place] 13:00:00 13:00:00 t; JANNA MARINELLI PA Physici DENISE, PA [facility] 2020-05-21 2020-05-21 [facility] [id number] [place] 10:30:00 10:30:00 t; VIRIDIANA RIZO M.D. [facility] KEMP M.D. [facility] 2020-04-26 2020-04-26 Harjinder MARINELLI, [facility] [id number] [place] 14:15:00 14:15:00 t; JANNA MARINELLI PA Physici DENISE, PA [facility] 2020-03-01 2020-03-01 Harjinder MARINELLI [facility] Orthopedics [id number] [place] 11:00:00 11:00:00 t; JANNA MARINELLI PA [facility] ANTONY Lira [facility] 2020-01-19 2020-01-19 Appointeve MARINELLI [facility] [id number] [place] 10:45:00 10:45:00 t; JANNA MARINELLI PA Physici DENISE, PA [facility] 2020-01-01 2020-01-01 Harjinder AGARWAL, [facility] [id number] [place] 10:00:00 10:00:00 t; Raghav BUSCH M.D. ans Xavi BUSCH 2020-01-01 2020-01-01 [facility] [id number] [place] 07:00:00 07:00:00 t; Vic Olivier Phy sici Timothy, M.D. ans M.D. 2019-12-15 2019-12-15 Appointmen ISIS [facility] Orthopedics [id number] [place] 11:00:00 11:00:00 t; JANNA MARINELLI PA Trauma Physici JANNA, PA [facility] 2019-09-22 2019-09-22 [facility] [id number] [place] 08:00:00 08:00:00 t; JANNA MARINELLI PA Trauma Physici JANNA, PA [facility] 2019-08-25 2019-08-25 [facility] [id number] [place] 09:45:00 09:45:00 t; JANNA MARINELLI PA Trauma Physici JANNA, PA [facility] 2019-08-13 2019-08-[facility] [id number] [place] 12:45:00 12:45:00 t; Mihai MCDANIELS, PMaria Elena ans ENEDELIA P.Lauryn 2019-06-19 2019-06-19 Appointmen [facility] [id number] [place] 10:00:00 10:00:00 t; DOMENICA REY Ph ysici WILLIAM, M.D. ans M.D. 2019-06-02 2019-06-02 Appointmen ISIS [facility] Orthopedics [id number] [place] 11:30:00 11:30:00 t; JANNA MARINELLI PA Trauma Physici JANNA, PA [facility] 2019-05-27 2019-05-27 App[facility]men [facility] [id number] [place] 13:30:00 13:30:00 t; Raghav BUSCH M.D. ans GRIGORIOS, M.D. 2019-05-22 2019-05-22 Appointmen [facility] [id number] [place] 10:45:00 10:45:00 t; DOMENICA REY Ph ysici WILLIAM, M.D. ans M.D. 2019-05-21 2019-05-21 Harjinder JACOBSEN [facility] [id number] [place] 11:30:00 11:30:00 t; PARUL JACOBSEN Physi Xavi Brown MMarlys 2019-05-21 2019-05-21 Harjinder JACOBSEN [facility] Orthopedics [id number] [place] 08:00:00 08:00:00 t; PARUL JACOBSEN Trauma Physi Xavi Brown - ans Xavi [facility] 2019-05-20 2019-05-20 Harjinder AGARWAL [facility] [id number] [place] 12:30:00 12:30:00 t; Raghav BUSCH M.D. ans GRIGORIOS, M.D. 2019-05-07 2019-05-07 Harjinder JACOBSEN [facility] Orthopedics [id number] [place] 13:30:00 13:30:00 t; PARUL JACOBSEN Trauma Physi Xavi Brown - ans Xavi [facility] 2019-04-22 2019-04-22 Appointeve [facility] [id number] [place] 09:30:00 09:30:00 t; DOMENCIA REY, Ph Xavi Montes MMarlys 2019-04-03 2019-04-03 Harjinder REY [facility] Orthopedics [id number] [place] 11:00:00 11:00:00 t; DOMENICA REY, Trauma Ph Xavi Montes - luther [facility] 2019-03-26 2019-03-26 Harjinder JACOBSEN [facility] Orthopedics [id number] [place] 13:30:00 13:30:00 t; PARUL JACOBSEN Trauma Physi janneth TERAN M.D. Clinic - ans MMarlys [facility] 2019-03-17 2019-03-17 Harjinder MOON [facility] Orthopedics [id number] [place] 10:00:00 10:00:00 t; ENEDELIA Trauma Physi ci Gopi MOON Clinic - ans [facility] 2019-02-19 2019-02-19 Harjinder JACOBSEN [facility] Orthopedics [id number] [place] 13:15:00 13:15:00 t; PARUL JACOBSEN, Trauma Physi janneth TERAN M.D. [facility] luther [facility] 2019-02-18 2019-02-18 Harjinder AGARWAL [facility] Plastic [id number] [place] 12:30:00 12:30:00 t; Libby BUSCH - Ricci AGARWAL M.D. [facility] Elena BUSCH M.D. [place] 2019-02-05 2019-02-05 Harjinder MOON [facility] Orthopedics [id number] [place] 12:30:00 12:30:00 t; ENEDELIA, Trauma Physi ci Gopi MOON [facility] 2019-01-21 2019-01-21 Harjinder AGARWAL [facility] Plastic [id number] [place] 11:30:00 11:30:00 t; Libby BUSCH - P calvin AGARWAL M.D. [facility] Elena BUSCH M.D. [place] 2019-01-15 2019-01-15 Harjinder JACOBSEN, [facility] [id number] [place] 12:30:00 12:30:00 t; PARUL JACOBSEN Physi Xavi Brown M.D. 2019-01-07 2019-01-07 Harjinder AGARWAL, [facility] [id number] [place] 08:00:00 08:00:00 t; Raghav BUSCH M.D. ans GRIGORIOS, M.D. 2018-12-31 2018-12-31 Appointeve JACOBSEN, [facility] [id number] [place] 09:00:00 09:00:00 t; PARUL JACOBSEN Physi Xavi Brown MMarlys 2018-12-20 2018-12-20 Appointeve JACOBSEN, [facility] [id number] [place] 07:00:00 07:00:00 t; PARUL JACOBSEN Physi Xavi Brown MMarlys 2018-12-17 2018-12-17 Appointeve JACOBSEN, [facility] [id number] [place] 11:00:00 11:00:00 t; PARUL JACOBSEN Physi Xavi BrownD. 2018-12-16 2018-12-16 Appointmen ANN-MARIE [facility] UTP [id number] [place] 10:00:00 10:00:00 t; PARUL JACOBSEN Physi ci ANDREW, M.D. ans M.D. 2018-12-14 2018-12-14 Appointeve JACOBSEN [facility] UTP [id number] [place] 11:00:00 11:00:00 t; PARUL JACOBSEN Physi Xavi Brown M.D. 2018-12-14 2018-12-14 [facility] [address] [facility] 13:42:00 08:04:00 Results Test Description Test Time Test Comments Results Result Sour e Comments [U] XRAY FEMUR 2 2020-05-24 [facility] RIGHT [id number] 12:59:00 acquired, not reported on this accession number. [U] XRAY KNEE 1 OR 2020-03-01 [facility] 2 VWS LEFT [id number] 11:28:00 acquired, not reported on this accession number. [U] XRAY FEMUR 2 2020-03-01 [facility] VWS RIGHT [id number] 11:18:00 acquired, not reported on this accession number. [U] XRAY FEMUR 2 2019-12-15 [facility] V[facility] RIGHT [id number] 12:07:00 acquired, not reported on this accession number. [U] XRAY FEMUR 2 2019-09-22 [facility] VWS RIGHT [id number] 09:28:00 acquired, not reported on this accession number. [U] XRAY FEMUR 2 2019-05-21 [facility] V[facility] RIGHT [id number] 11:44:00 acquired, not reported on this accession number. [U] XRAY KNEE 1 OR 2019-05-21 [facility] 2 VWS RIGHT [id number] 11:44:00 acquired, not reported on this accession number. [U] XRAY ANKLE MIN 2019-05-21 [facility] 3 VWS RIGHT [id number] 11:44:00 acquired, not reported on this accession number. [U] XRAY ANKLE MIN 2019-03-26 [facility] 3 VWS RIGHT [id number] 12:42:00 acquired, not reported on this accession number. [U] XRAY FEMUR 2 2019-03-26 [facility] VWS RIGHT [id number] 12:42:00 acquired, not reported on this accession number. [U] XRAY KNEE 1 OR 2019-03-26 [facility] 2 VWS RIGHT [id number] 12:42:00 acquired, not reported on this accession number. [U] XRAY ANKLE MIN 2019-03-17 [facility] 3 VWS RIGHT [id number] 10:16:00 acquired, not reported on this accession number. [U] XRAY FEMUR 2 2019-03-17 [facility] VWS RIGHT [id number] 10:16:00 acquired, not reported on this accession number. [U] XRAY KNEE 1 OR 2019-03-17 [facility] 2 VWS RIGHT [id number] 10:16:00 acquired, not reported on this accession number. [U] XRAY KNEE 1 OR 2019-02-19 [facility] 2 VWS RIGHT [id number] 13:10:00 acquired, not reported on this accession number. [U] XRAY FEMUR 2 2019-02-19 [facility] VWS RIGHT [id number] 13:10:00 acquired, not reported on this accession number. [U] XRAY ANKLE MIN 2019-02-19 [facility] 3 VWS RIGHT [id number] 13:10:00 acquired, not reported on this accession number. [U] XRAY ANKLE MIN 2019-02-05 [facility] 3 VWS RIGHT [id number] 12:39:00 acquired, not reported on this accession number. [U] XRAY FEMUR 2 2019-02-05 [facility] VWS RIGHT [id number] 12:39:00 acquired, not reported on this accession number. [U] XRAY KNEE 1 OR 2019-02-05 [facility] 2 VWS RIGHT [id number] 12:39:00 acquired, not reported on this accession number. [U] XRAY ANKLE MIN 2019-01-15 [facility] 3 VWS RIGHT [id number] 11:58:00 acquired, not reported on this accession number. [U] XRAY FEMUR 2 2019-01-15 [facility] V[facility] RIGHT [id number] 11:58:00 acquired, not reported on this accession number. [U] XRAY KNEE 1 OR 2019-01-15 [facility] 2 VWS RIGHT [id number] 11:58:00 acquired, not reported on this accession number.
--- NOTE | 2022-12-09 15:58 | EDPHYS ---
Physician Documentation [facility] Name: Darek Grimes Age: 26 yrs Sex: Male : 1995 Arrival Date: 12/09/2022 Time: 13:23 Bed 11 Private MD: ED Physician New Avila HPI: 12/09 17:13 This 26 yrs old Male presents to ER via Ambulatory with complaints of Fever, snw Headache, Sore Throat. 17:13 The patient reports fever, that was measured at 101 degrees Fahrenheit. Onset: The snw symptoms/episode began/occurred suddenly. Associated signs and symptoms: Pertinent positives: headache, sore throat. Severity of symptoms: At their worst the symptoms were mild moderate. It is unknown whether or not the patient has had similar symptoms in the past. The patient has not recently seen a physician. Historical: - Allergies: 14:08 Apple; nj1 - PMHx: 14:08 None; nj1 - PSHx: 14:08 leg/wrist SX; nj1 - Immunization history:: Client reports having NOT received the Covid vaccine. - Social history:: Smoking status: Patient denies any tobacco usage or history of. ROS: 17:12 Eyes: Negative for injury, pain, redness, and discharge. snw 17:12 Neck: Negative for injury, pain, and swelling, Cardiovascular: Negative for chest pain, palpitations, and edema, Respiratory: Negative for shortness of breath, cough, wheezing, and pleuritic chest pain, Abdomen/GI: Negative for abdominal pain, nausea, vomiting, diarrhea, and constipation, Back: Negative for injury and pain, : Negative for injury, bleeding, discharge, and swelling, MS/Extremity: Negative for injury and deformity, Skin: Negative for injury, rash, and discoloration, Neuro: Negative for headache, weakness, numbness, tingling, and seizure, Psych: Negative for depression, anxiety, suicide ideation, homicidal ideation, and hallucinations. 17:12 Constitutional: Positive for body aches, fever. 17:12 ENT: Positive for sore throat. Exam: 17:12 Constitutional: This is a well developed, well nourished patient who is awake, alert, snw and in no acute distress. Head/Face: Normocephalic, atraumatic. Eyes: Pupils equal round and reactive to light, extra-ocular motions intact. Lids and lashes normal. Conjunctiva and sclera are non-icteric and not injected. Cornea within normal limits. Periorbital areas with no swelling, redness, or edema. ENT: Nares patent. No nasal discharge, no septal abnormalities noted. Tympanic membranes are normal and external auditory canals are clear. Oropharynx with no redness, swelling, or masses, exudates, or evidence of obstruction, uvula midline. Mucous membranes moist. Neck: Trachea midline, no thyromegaly or masses palpated, and no cervical lymphadenopathy. Supple, full range of motion without nuchal rigidity, or vertebral point tenderness. No Meningismus. Chest/axilla: Normal chest wall appearance and motion. Nontender with no deformity. No lesions are appreciated. Cardiovascular: Regular rate and rhythm with a normal S1 and S2. No gallops, murmurs, or rubs. Normal PMI, no JVD. No pulse deficits. Respiratory: Lungs have equal breath sounds bilaterally, clear to auscultation and percussion. No rales, rhonchi or wheezes noted. No increased work of breathing, no retractions or nasal flaring. Abdomen/GI: Soft, non-tender, with normal bowel sounds. No distension or tympany. No guarding or rebound. No evidence of tenderness throughout. Back: No spinal tenderness. No costovertebral tenderness. Full range of motion. Skin: Warm, dry with normal turgor. Normal color with no rashes, no lesions, and no evidence of cellulitis. MS/ Extremity: Pulses equal, no cyanosis. Neurovascular intact. Full, normal range of motion. Neuro: Awake and alert, GCS 15, oriented to person, place, time, and situation. Cranial nerves II-XII grossly intact. Motor strength 5/5 in all extremities. Sensory grossly intact. Cerebellar exam normal. Normal gait. Psych: Awake, alert, with orientation to person, place and time. Behavior, mood, and affect are within normal limits. Vital Signs: 14:06 BP 131 / 91; Pulse 74; Resp 18; Temp 100(O); Pulse Ox 99% ; Weight 72.57 kg; Height 5 nj1 ft. 10 in. ; Pain 10/10; 14:06 Body Mass Index 22.96 (72.57 kg, 177.8 cm) nj1 14:06 Pain Scale: Adult nj1 MDM: 15:57 Patient medically screened. snw 15:59 Refusal of service: The patient/guardian displays adequate decision making capability snw and despite a detailed discussion of alternatives, benefits, risks, and consequences refuses: all lab tests. 17:13 Differential diagnosis: viral Infection, bacterial infection. Data reviewed: vital snw signs, nurses notes, lab test result(s). I considered the following discharge prescriptions or medication management in the emergency department Medications were administered in the Emergency Department. See MAR. Counseling: I had a detailed discussion with the patient and/or guardian regarding the historical points, exam findings, and any diagnostic results supporting the discharge/admit diagnosis, the presence of at least one elevated blood pressure reading (>120/80) during this emergency department visit, lab results, the need for outpatient follow up, for definitive care, to return to the emergency department if symptoms worsen or persist or if there are any questions or concerns that arise at home. Special discussion: I have referred the patient to see his PCP for further evaluation of high blood pressure. Based on the history and exam findings, there is no indication for further emergent testing or inpatient evaluation. I discussed with the patient/guardian the need to see the primary care provider for further evaluation of the symptoms. 12/09 14:22 Order name: SARS RAPID; Complete Time: 16:51 snw 12/09 14:22 Order name: Strep snw 12/09 14:22 Order name: Flu; Complete Time: 16:42 snw Administered Medications: 16:17 Drug: AZITHromycin PO 500 mg Route: PO; hb 16:17 Drug: ZyrTEC - Cetirizine PO 10 mg Route: PO; hb 16:17 Drug: Famotidine PO 20 mg Route: PO; hb Disposition: 16:33 I reviewed the patient's care provided by the Advanced Practice Provider and agree with jrLeighton the diagnosis and treatment plan. Disposition Summary: 12/09/22 15:58 Discharge Ordered Location: Home snw Condition: Stable snw Diagnosis - Acute pharyngitis, unspecified snw - SARS-associated coronavirus as the cause of diseases classified elsewhere snw Followup: snw - With: Private Physician - When: 2 - 3 days - Reason: Recheck today's complaints, Continuance of care, Re-evaluation by your physician Followup: snw - With: Emergency Department - When: As needed - Reason: Worsening of condition Discharge Instructions: - Discharge Summary Sheet snw - Pharyngitis snw - Sore Throat snw - Rehydration, Adult snw - COVID-19 snw Forms: - Work release form snw - Medication Reconciliation Form snw - Thank You Letter snw - Antibiotic Education snw - Prescription Opioid Use snw - Patient Portal Instructions snw - Leadership Thank You Letter snw Prescriptions: - Zyrtec 10 mg Oral Tablet - take 1 tablet by ORAL route once daily As needed; 20 tablet; Refills: 0, snw Product Selection Permitted - Zithromax Z-Brendon 250 mg Oral Tablet - take 1 tablet by ORAL route as directed for 5 days Day 1 - take two (2) tablets snw one time. Day 2, 3, 4 , 5 take one (1) tablet once daily.; 6 tablet; Refills: 0, Product Selection Permitted - Pepcid 20 mg Oral Tablet - take 1 tablet by ORAL route once daily; 20 tablet; Refills: 0, Product snw Selection Permitted Signatures: Dispatcher [employer] EDMS Elaine Tomlin, [employer]-C [employer]-Csnw Marilu Gaston, RN RN New Avila MD MD [id number] Caryl Gurrola RN RN nj1
--- NOTE | 2022-12-09 15:58 | ER ---
Nurse's Notes [facility] Name: Darek Grimes Age: 26 yrs Sex: Male : 1995 Arrival Date: 12/09/2022 Time: 13:23 Bed 11 Private MD: Diagnosis: Acute pharyngitis, unspecified;SARS-associated coronavirus as the cause of diseases classified elsewhere Presentation: 12/09 14:06 Chief complaint: Patient states: Fever and headache for 2 days, and sore throat since nj1 3am today. Took tylenol, has not taken any ibuprofen today. Coronavirus screen: Vaccine status: Patient reports being unvaccinated. Ebola Screen: Patient denies travel to an Ebola-affected area in the 21 days before illness onset. Initial Sepsis Screen: Does the patient meet any 2 criteria? No. Patient's initial sepsis screen is negative. Does the patient have a suspected source of infection? No. Patient's initial sepsis screen is negative. Risk Assessment: Do you want to hurt yourself or someone else? Patient reports no desire to harm self or others. Onset of symptoms was December 07, 2022. 14:06 Method Of Arrival: Ambulatory [facility] 14:06 Acuity: KARINA 4 nj1 Triage Assessment: 14:10 General: Appears in no apparent distress. comfortable, Behavior is calm, cooperative, nj1 appropriate for age. 14:10 Pain: Complains of pain in Throat Pain currently is 10 out of 10 on a pain scale. EENT: nj1 Reports difficulty swallowing. Neuro: Level of Consciousness is awake, alert, obeys commands, Oriented to person, place, time, situation. Cardiovascular: Patient's skin is warm and dry. Respiratory: Airway is patent Respiratory effort is even, unlabored. Historical: - Allergies: 14:08 Apple; nj1 - PMHx: 14:08 None; nj1 - PSHx: 14:08 leg/wrist SX; nj1 - Immunization history:: Client reports having NOT received the Covid vaccine. - Social history:: Smoking status: Patient denies any tobacco usage or history of. Screenin:10 [facility] ED Fall Risk Assessment (Adult) Score/Fall Risk Level 0 - 2 = Low Risk nj Oriented to surroundings, Maintained a safe environment, Hourly rounding (assess needs \T\ fall precautionary measures) done. Abuse screen: Denies threats or abuse. Denies injuries from another. Nutritional screening: No deficits noted. Tuberculosis screening: No symptoms or risk factors identified. Vital Signs: 14:06 BP 131 / 91; Pulse 74; Resp 18; Temp 100(O); Pulse Ox 99% ; Weight 72.57 kg; Height 5 [facility] ft. 10 in. ; Pain 10/10; 14:06 Body Mass Index 22.96 (72.57 kg, 177.8 cm) nj1 14:06 Pain Scale: Adult [facility] ED Course: 13:25 Patient arrived in ED. ts1 13:31 Elaine Tomlin FNP-C [facility]. snw 13:31 New Avila MD is Attending Physician. snw 14:08 Triage completed. nj1 14:09 Arm band placed on left wrist. nj1 14:10 Patient has correct armband on for positive identification. nj1 Administered Medications: 16:17 Drug: AZITHromycin PO 500 mg Route: PO; hb 16:17 Drug: ZyrTEC - Cetirizine PO 10 mg Route: PO; hb 16:17 Drug: Famotidine PO 20 mg Route: PO; hb Outcome: 15:58 Discharge ordered by . snw 16:17 Patient left the ED. hb 16:54 Patient left the ED. hb 17:49 Patient left the ED. snw Signatures: Elaine Tomlin FNP-C FNP-Csnw Marilu Gaston RN RN Caryl Gurrola RN RN nj1 Claire Pitts PAS PAS ts1
[2022-12-09 16:22] VITALS: BP 131/91; TEMP 100; O2SAT 99
[2022-12-09] MEDS ORDERED: CETIRIZINE HCL 5 MG TABLET ONE (16:22)
[2022-12-09] MEDS ORDERED: FAMOTIDINE 20 MG TAB ONE (16:22)
[2022-12-09] MEDS ORDERED: AZITHROMYCIN 250 MG TAB ONE (16:22)
[2022-12-09 16:49] LABS: SARS-CoV-2 Antigen Rapid Res Positive (Negative)
== END 2022-12-09 17:49 | disposition home or self-care (01) ==
LOC: ER 13:23
DX: U07.1 COVID-19 (principal); J02.9 Acute pharyngitis, unspecified; R51.9 Headache, unspecified
CPT/HCPCS: 36415; 87070; 87081; 87804; 87811; 99282

== ENCOUNTER 2024-02-26 17:32 | Emergency (ER) | payer BC ==
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
[2024-02-26] MEDS ORDERED: IBUPROFEN 400 MG TAB ONE (18:36)
--- NOTE | 2024-02-26 19:04 | EDPHYS ---
Physician Documentation [facility] Name: Darek Grimes Age: 28 yrs Sex: Male : 1995 Arrival Date: 02/26/2024 Time: 17:32 Bed 9 Private MD: ED Physician Klever Wang HPI: 02/25 18:42 This 28 yrs old Male presents to ER via Ambulatory with complaints of Flu sp3 Symptoms. 18:42 20-year-old male with no past medical history presents with 2-day history of fever, sp3 body aches, mild cough. He denies significant headache, chest pain, shortness of breath, abdominal pain, vomiting, diarrhea, rash, known sick contacts, prolonged immobilization, prior DVT or PE, prior pneumonia, travel history, or any other signs or symptoms on ROS at this time.. Historical: - Allergies: 17:52 Apple; tm6 - PMHx: 17:52 None; tm6 - PSHx: 17:52 leg/wrist SX; tm6 - Immunization history:: Client reports having NOT received the Covid vaccine. - Infectious Disease History:: Denies. - Social history:: Smoking status: Patient denies any tobacco usage or history of. Patient uses alcohol, weekly. ROS: 18:43 Constitutional: Negative for fever, chills, and weight loss, Eyes: Negative for injury, sp3 pain, redness, and discharge, Neck: Negative for injury, pain, and swelling, Cardiovascular: Negative for chest pain, palpitations, and edema, Abdomen/GI: Negative for abdominal pain, nausea, vomiting, diarrhea, and constipation, Back: Negative for injury and pain, MS/Extremity: Negative for injury and deformity, Skin: Negative for injury, rash, and discoloration, Neuro: Negative for headache, weakness, numbness, tingling, and seizure, Psych: Negative for depression, anxiety, suicide ideation, homicidal ideation, and hallucinations, Allergy/Immunology: Negative for hives, rash, and allergies, Endocrine: Negative for neck swelling, polydipsia, polyuria, polyphagia, and marked weight changes, Hematologic/Lymphatic: Negative for swollen nodes, abnormal bleeding, and unusual bruising, 18:43 All other systems are negative, Exam: 18:43 Constitutional: This is a well developed, well nourished patient who is awake, alert, sp3 and in no acute distress. Head/Face: Normocephalic, atraumatic. Eyes: Pupils equal round and reactive to light, extra-ocular motions intact. Lids and lashes normal. Conjunctiva and sclera are non-icteric and not injected. Cornea within normal limits. Periorbital areas with no swelling, redness, or edema. ENT: Nares patent. No nasal discharge, no septal abnormalities noted. External auditory canals are clear. Oropharynx with no redness, swelling, or masses, exudates, or evidence of obstruction, uvula midline. Mucous membranes moist. Neck: Trachea midline, no thyromegaly or masses palpated, and no cervical lymphadenopathy. Supple, full range of motion without nuchal rigidity, or vertebral point tenderness. No Meningismus. Chest/axilla: Normal chest wall appearance and motion. Nontender with no deformity. No lesions are appreciated. Cardiovascular: Regular rate and rhythm with a normal S1 and S2. No gallops, murmurs, or rubs. Normal PMI, no JVD. No pulse deficits. Respiratory: Lungs have equal breath sounds bilaterally, clear to auscultation and percussion. No rales, rhonchi or wheezes noted. No increased work of breathing, no retractions or nasal flaring. Abdomen/GI: Soft, non-tender, with normal bowel sounds. No distension or tympany. No guarding or rebound. No evidence of tenderness throughout. Back: No spinal tenderness. No costovertebral tenderness. Full range of motion. Skin: Warm, dry with normal turgor. Normal color with no rashes, no lesions, and no evidence of cellulitis. MS/ Extremity: Pulses equal, no cyanosis. Neurovascular intact. Full, normal range of motion. Neuro: Awake and alert, GCS 15, oriented to person, place, time, and situation. Cranial nerves II-XII grossly intact. Motor strength 5/5 in all extremities. Sensory grossly intact. Cerebellar exam normal. Normal gait. Psych: Awake, alert, with orientation to person, place and time. Behavior, mood, and affect are within normal limits. Vital Signs: 17:49 BP 138 / 91; Pulse 97; Resp 17; Temp 100.6(O); Pulse Ox 97% on R/A; MAP 103 mmHg; tm6 Weight 74.84 kg; Height 5 ft. 10 in. ; Pain 8/10; 19:46 BP 150 / 100; Pulse 79; Resp 17; Temp 97.9(O); Pulse Ox 98% on R/A; MAP 114 mmHg; Pain tm6 4/10; 17:49 Body Mass Index 23.67 (74.84 kg, 177.8 cm) tm6 17:49 Pain Scale: Adult tm6 19:46 Pain Scale: Adult tm6 MDM: 17:37 Medical Screening Exam initiated sp3 18:43 Data reviewed: vital signs, nurses notes, lab test result(s). ED course: 20-year-old sp3 male with upper respiratory infection symptoms. Consider viral illness, COVID-19, influenza, strep pharyngitis, bronchitis. Clinically I am at highly suspicious of pneumonia. Will obtain swabs, administer ibuprofen and recheck vital signs. Disposition probable discharge on any indicated medications.. 19:02 ED course: Patient with flu A. Will discharge on Tamiflu and Tessalon.. sp3 02/25 17:38 Order name: Flu; Complete Time: 19:11 sp3 02/25 17:38 Order name: SARS RAPID; Complete Time: 19:11 sp3 02/25 17:38 Order name: Strep sp3 02/25 19:12 Order name: Throat Culture EDMS Administered Medications: 18:36 Drug: Ibuprofen PO 800 mg PO once Route: PO; ph 19:47 Follow up: Response: No adverse reaction tm6 Disposition Summary: 02/26/24 19:03 Discharge Ordered Notes: Location: Home sp3 Condition: Stable sp3 Diagnosis - Influenza A, viral illness, fever sp3 Followup: sp3 - With: Private Physician - When: Upon discharge from the Emergency Department - Reason: Continuance of care Discharge Instructions: - Discharge Summary Sheet sp3 - Influenza, Adult sp3 Forms: - Medication Reconciliation Form sp3 - Antibiotic Education sp3 - Prescription Opioid Use sp3 - Patient Portal Instructions sp3 - Leadership Thank You Letter sp3 - Work release form tm6 Prescriptions: - Tessalon Perles 100 mg Oral Capsule - take 1 capsule ORAL route every 8 hours As needed; 15 capsule; Refills: 0, sp3 Product Selection Permitted - Tamiflu 75 mg Oral capsule - take 1 tablet ORAL route every 12 hours for 5 days; 10 tablet; Refills: 0, sp3 Product Selection Permitted Signatures: Dispatcher [employer] Jana March, ASHLIE RN ph Klever Wang MD MD sp3 Soumya Dang RN RN tm6
--- NOTE | 2024-02-26 19:04 | ER ---
Nurse's Notes [facility] Name: Darek Grimes Age: 28 yrs Sex: Male : 1995 Arrival Date: 02/26/2024 Time: 17:32 Bed 9 Private MD: Diagnosis: Influenza A, viral illness, fever Presentation: 02/25 17:50 Chief complaint: Patient states: started yesterday morning with body aches, congestion, tm6 fever, dizziness. Some nausea. Coronavirus screen:. Coronavirus screen: Vaccine status: Patient reports being unvaccinated. Ebola Screen: Patient negative for fever greater than or equal to 101.5 degrees Fahrenheit, and additional compatible Ebola Virus Disease symptoms Patient denies exposure to infectious person. Patient denies travel to an Ebola-affected area in the 21 days before illness onset. No symptoms or risks identified at this time. Initial Sepsis Screen: Does the patient meet any 2 criteria? HR > 90 bpm. Does the patient have a suspected source of infection? No. Patient's initial sepsis screen is negative. Risk Assessment: Do you want to hurt yourself or someone else? Patient reports no desire to harm self or others. Onset of symptoms was February 25, 2024. 17:50 Method Of Arrival: Ambulatory tm6 17:50 Acuity: KARINA 4 tm6 Triage Assessment: 17:52 General: Appears in no apparent distress. uncomfortable, Behavior is calm, cooperative. tm6 Pain: Complains of pain in general body aches. EENT: No signs and/or symptoms were reported regarding the EENT system. Neuro: Level of Consciousness is awake, alert, obeys commands, Oriented to person, place, time, situation, Reports dizziness, since yesterday. Cardiovascular: Patient's skin is warm and dry. Respiratory: Airway is patent Respiratory effort is even, unlabored, Respiratory pattern is regular, symmetrical. GI: Abdomen is flat, non-distended, Reports nausea. : No signs and/or symptoms were reported regarding the genitourinary system. Derm: No signs and/or symptoms reported regarding the dermatologic system. Musculoskeletal: Reports general weakness and body aches since yesterday. 17:53 Respiratory: Reports cough that is. tm6 Historical: - Allergies: 17:52 Apple; tm6 - PMHx: 17:52 None; tm6 - PSHx: 17:52 leg/wrist SX; tm6 - Immunization history:: Client reports having NOT received the Covid vaccine. - Infectious Disease History:: Denies. - Social history:: Smoking status: Patient denies any tobacco usage or history of. Patient uses alcohol, weekly. Screenin:20 [facility] ED Fall Risk Assessment (Adult) History of falling in the last 3 months, hb including since admission No falls in past 3 months (0 pts) Confusion or Disorientation No (0 pts) Intoxicated or Sedated No (0 pts) Impaired Gait No (0 pts) Mobility Assist Device Used No (0 pt) Altered Elimination No (0 pt) Score/Fall Risk Level 0 - 2 = Low Risk Oriented to surroundings, Maintained a safe environment, Educated pt \T\ family on fall prevention, incl call for assistance when getting out of bed. Abuse screen: Denies threats or abuse. Denies injuries from another. Nutritional screening: No deficits noted. Tuberculosis screening: No symptoms or risk factors identified. Assessment: 18:20 General: Appears in no apparent distress. Behavior is calm, cooperative. Pain: Pain hb currently is 7 out of 10 on a pain scale. Neuro: Level of Consciousness is awake, alert, obeys commands, Oriented to person, place, time, situation. Cardiovascular: Patient's skin is warm and dry. Respiratory: Reports cough that is Respiratory effort is even, unlabored, Respiratory pattern is regular, symmetrical. GI: No signs and/or symptoms were reported involving the gastrointestinal system. : No signs and/or symptoms were reported regarding the genitourinary system. EENT: Reports sinus congestion, sore throat . Derm: Skin is pink, warm \T\ dry. Musculoskeletal: Reports body aches. 19:47 Reassessment: Patient and/or family updated on plan of care and expected duration. Pain tm6 level reassessed. Patient is alert, oriented x 3, equal unlabored respirations, skin warm/dry/pink. Vital Signs: 17:49 BP 138 / 91; Pulse 97; Resp 17; Temp 100.6(O); Pulse Ox 97% on R/A; MAP 103 mmHg; tm6 Weight 74.84 kg; Height 5 ft. 10 in. ; Pain 8/10; 19:46 BP 150 / 100; Pulse 79; Resp 17; Temp 97.9(O); Pulse Ox 98% on R/A; MAP 114 mmHg; Pain tm6 410; 17:49 Body Mass Index 23.67 (74.84 kg, 177.8 cm) tm6 17:49 Pain Scale: Adult tm6 19:46 Pain Scale: Adult tm6 ED Course: 17:35 Patient arrived in ED. im 17:37 Klever Wang MD is Attending Physician. sp3 17:52 Triage completed. tm6 17:52 Arm band placed on right wrist. tm6 18:20 Patient has correct armband on for positive identification. Provided Education on: hb tests, result times, medications use of call light . 18:20 No provider procedures requiring assistance completed. Patient did not have IV access hb during this emergency room visit. 18:33 Strep Sent. hb 18:33 SARS RAPID Sent. hb 18:33 Flu Sent. hb 18:55 Marilu Gsaton, RN is Primary Nurse. hb Administered Medications: 18:36 Drug: Ibuprofen PO 800 mg PO once Route: PO; ph 19:47 Follow up: Response: No adverse reaction tm6 Medication: 18:20 VIS not applicable for this client. hb Outcome: 19:03 Discharge ordered by . sp3 19:47 Discharged to home ambulatory, with family, tm6 19:47 Condition: stable 19:47 Discharge instructions given to patient, family, Instructed on discharge instructions, follow up and referral plans. medication usage, Demonstrated understanding of instructions, follow-up care, medications, Prescriptions given X 2, 19:47 Patient left the ED. tm6 Signatures: Jana Jiménez RN RN Marilu Gaston, RN RN Klever Wang MD MD sp3 Judy You Soumya Dang RN RN tm6
[2024-02-26 19:10] LABS: SARS-CoV-2 Antigen CONTROL BLUE LINE VIS/BG OK; SARS-CoV-2 Antigen Rapid Res Negative (Negative)
== END 2024-02-26 19:47 | disposition home or self-care (01) ==
LOC: ER 17:32
DX: J10.1 Influenza due to other identified influenza virus with other respiratory manifestations (principal); Z11.52 Encounter for screening for COVID-19
CPT/HCPCS: 36415; 87070; 87081; 87804; 87811